=== PATIENT | male | born 1990 | race Caucasian/White ===

== ENCOUNTER → 2024-09-21 | Outpatient (CLI) | payer BC ==
--- NOTE | 2024-09-23 23:10 | CT ---
EXAMINATION TYPE: CT heart w calcium score DATE OF EXAM: 09/21/2024 5:30 PM COMPARISON: None. CLINICAL INDICATION: Male, 33 years old with history of Z13.9 ENCOUNTER FOR SCREENING, High cholester ol, family hx of heart disease. TECHNIQUE - Prospective Gating was used. Slice thickness: 3mm. Density threshold (HU): 130, Pixel threshold: 3, Algorithm: discrete Contrast used: mL of , (none if empty) Oral contrast used: (none if empty) CT DLP: 74 mGycm, Automated exposure control for dose reduction was used. FINDINGS: CT CALCIUM SCORING Coronary calcium is a marker for plaque (fatty deposits) in a blood vessel or atherosclerosis (harden ing of the arteries). The presence and amount of calcium detected in a coronary artery by the CT sca n, indicates the presence and amount of atherosclerotic plaque. These calcium deposits appear years before the development of heart disease symptoms such as chest pain and shortness of breath. A calcium score is computed for each of the coronary arteries based upon the volume and density of th e calcium deposits. This can be referred to as your calcified plaque burden. It does not correspond directly to the percentage of narrowing in the artery but does correlate with the severity of the un derlying coronary atherosclerosis. RESULTS Region: LM Calcium Score ([place]): 0 Volume (mm3): 0 Mass (g): 0 Region: RCA Calcium Score ([place]): 87.02 Volume (mm3): 94.41 Mass (g): 188.83 Region: LAD Calcium Score ([place]): 341.98 Volume (mm3): 283.98 Mass (g): 567.95 Region: CX Calcium Score ([place]): 8.96 Volume (mm3): 8.47 Mass (g): 16.93 Region: PDA Calcium Score ([place]): 0 Volume (mm3): 0 Mass (g): 0 Total: Calcium Score ([place]): 437.96 Volume (mm3): 386.85 Mass (g): 773.71 TOTAL CALCIUM SCORE: 437.96 IMPRESSION: Calcium Score: 438 Implication: Fairly extensive coronary artery plaquing present Risk of Coronary Artery Disease: High likelihood of at least one area of significant coronary artery narrowing. Additional cardiac workup recommended Impression: 1. Fairly extensive coronary artery calcification. Additional cardiac workup recommended CALCIUM SCORE IMPLICATION RISK OF C ORONARY ARTERY DISEASE 0 No identifiable plaque Very low, generally less than 5% 1-10 Minimal identifiable plaque Very unlikely, less than 10% 11-100 Definite, at least mild atherosclerotic plaque Mild or m inimal coronary narrowings likely 101-400 Definite, at least moderate atherosclerotic plaque Mild coronary ar verón[place] disease highly likely, significant narrowing possible 401 or Higher Extensive atherosclerotic plaque High lik elihood of at least one significant coronary narrowing [facility], , 09/23/2024 11:07 PM
== END | disposition home or self-care (01) ==
LOC: RADCTMAIN 16:06
PROVIDERS: ATTEND Internal Medicine Interventional Cardiology
DX: Z13.9 Encounter for screening, unspecified (principal); I25.10 Atherosclerotic heart disease of native coronary artery without angina pectoris
CPT/HCPCS: 75571